=== PATIENT | male | born 1990 | race Two or more races ===

== ENCOUNTER 2018-03-28 20:42 | Emergency (ER) | payer SELFPAY ==
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
[2018-03-28] MEDS ORDERED: HYDROCODONE/ACETAMINOPHEN 5-325 MG (6 TAB/ER DISP) PO PRN (22:19)
[2018-03-28] MEDS ORDERED: CYCLOBENZAPRINE HCL 10 MG TABLET PO ONE (22:19)
[2018-03-28 22:30] VITALS: BP 132/65
== END 2018-03-28 22:30 | disposition home or self-care (01) ==
LOC: ER 20:42
DX: S39.012A Strain of muscle, fascia and tendon of lower back, initial encounter (principal); S46.911A Strain of unspecified muscle, fascia and tendon at shoulder and upper arm level, right arm, initial encounter; F17.200 Nicotine dependence, unspecified, uncomplicated; X58.XXXA Exposure to other specified factors, initial encounter; Y93.H9 Activity, other involving exterior property and land maintenance, building and construction; Y92.007 Garden or yard of unspecified non-institutional (private) residence as the place of occurrence of the external cause
CPT/HCPCS: 99283